=== PATIENT | male | born 1985 | race American Indian/Alaskan Native ===

== ENCOUNTER 2017-02-15 08:43 | Emergency (ER) | payer OTHER ==
[2017-02-15 08:43] VITALS: BMI 25.6
--- NOTE | 2017-02-15 09:21 | ED PDOC ---
Arrival/HPI - General Historian: Patient <Denny Brown - Last Filed: 02/15/17 10:33> - History of Present Illness Time/Duration: Other (2 days) Symptom Onset: Gradual Quality: Aching Severity Level: 6 <Penny Botello - Last Filed: 02/15/17 10:37> - General Chief Complaint: Dental Pain Time Seen by Provider: 02/15/17 08:44 - History of Present Illness Narrative History of Present Illness (Text): 31 year old male with a past medical history of recurrent dental abscesses that presents with two days of pain and swelling located inferior to the right canine with swelling to the right mental area. He denies any fever, chills, dysphagia, trismus, respiratory difficulty, new skin lesions, palpitations, or chest pain. The pain is worse with chewing, hot or cold liquid or solid intake. He has not seen a dentist since he was a child. 02/15/17 09:18 (Penny Botello) Past Medical History - Provider Review Nursing Documentation Reviewed: Yes - Infectious Disease Hx of Infectious Diseases: None - Tetanus Immunization Tetanus Immunization: Unknown - Psychiatric Hx Depression: No Hx Emotional Abuse: No Hx Physical Abuse: No Hx Substance Use: No - Anesthesia Hx Anesthesia: No Hx Anesthesia Reactions: No Hx Malignant Hyperthermia: No - Suicidal Assessment Feels Threatened In Home Enviroment: No <Penny Botello - Last Filed: 02/15/17 10:37> Family/Social History - Physician Review Nursing Documentation Reviewed: Yes Family/Social History: No Known Family HX Smoking Status: Never Smoked Hx Alcohol Use: No Hx Substance Use: No Hx Substance Use Treatment: No <Penny Botello - Last Filed: 02/15/17 10:37> Allergies/Home Meds <Denny Brown - Last Filed: 02/15/17 10:33> <Penny Botello - Last Filed: 02/15/17 10:37> Allergies/Adverse Reactions: Allergies No Known Allergies Allergy (Verified 01/13/15 04:13) Review of Systems - Review of Systems Constitutional: absent: Fevers, Night Sweats Eyes: absent: Photophobia, Eye Pain ENT: absent: Hearing Changes, Tinnitus, TMJ Pain Respiratory: absent: SOB, Cough, Wheezing Cardiovascular: absent: Chest Pain, Palpitations Musculoskeletal: absent: Neck Pain Skin: Abscess. absent: Rash, Skin Lesions Neurological: absent: Headache, Dizziness, Focal Weakness Endocrine: absent: Diaphoresis Hemo/Lymphatic: absent: Adenopathy, Easy Bleeding Psychiatric: absent: Anxiety, Depression <Penny Botello - Last Filed: 02/15/17 10:37> Physical Exam Vital Signs Reviewed: Yes <Denny Brown - Last Filed: 02/15/17 10:33> Temperature: Afebrile Blood Pressure: Normal Pulse: Regular Respiratory Rate: Normal Appearance: Positive for: Well-Appearing Pain Distress: Mild Mental Status: Positive for: Alert and Oriented X 3 - Systems Exam Head: Present: Atraumatic, Normocephalic Pupils: Present: PERRL Extroacular Muscles: Present: EOMI Conjunctiva: Present: Normal Mouth: Present: Moist Mucous Membranes, Other (swelling and injected mucosal inferior to right inferior canine with soft tissue swelling of the ipsilateral chin) Pharnyx: Present: Normal. No: ERYTHEMA, EXUDATE, Peritonsilar Swelling Neck: Present: Normal Range of Motion. No: Lymphadenopathy, Trachea Midline Respiratory/Chest: Present: Clear to Auscultation, Good Air Exchange. No: Respiratory Distress Cardiovascular: Present: Regular Rate and Rhythm, Normal S1, S2 Abdomen: Present: Normal Bowel Sounds. No: Tenderness, Distention <Penny Botello - Last Filed: 02/15/17 10:37> Vital Signs Temp Pulse Resp BP Pulse Ox 02/15/17 09:48 98.6 F 80 19 148/80 100 02/15/17 08:46 98.3 F 78 18 143/87 99 Medical Decision Making <Denny Brown - Last Filed: 02/15/17 10:33> <Penny Botello - Last Filed: 02/15/17 10:37> ED Course and Treatment: 02/15/17 10:34 In agreement with resident note, which includes further HPI details. Patient was seen and evaluated with resident, came up with plan and treatment together. 31 year old male, whose past medical history includes reoccurring dental abscesses, presents complaining of pain and swelling to the right canine for the past 3 days. (Denny Brown) Patient is agreeable to be discharged with Augmentin for periodontal abscess and should schedule appointment with dentist or oral-maxillofacial surgeon for further management of the aforementioned condition. 02/15/17 09:24 (Penny Botello) - Scribe Statement The provider has reviewed the documentation as recorded by the Scribe <Denny Brown - Last Filed: 02/15/17 10:33> <Penny Botello - Last Filed: 02/15/17 10:37> - Scribe Statement Edward Valdez All medical record entries made by the Scribe were at my direction and personally dictated by me. I have reviewed the chart and agree that the record accurately reflects my personal performance of the history, physical exam, medical decision making, and the department course for this patient. I have also personally directed, reviewed, and agree with the discharge instructions and disposition. (Denny Brown) Disposition/Present on Arrival <Denny Brown - Last Filed: 02/15/17 10:33> - Present on Arrival Any Indicators Present on Arrival: No History of DVT/PE: No History of Uncontrolled Diabetes: No Urinary Catheter: No History of Decub. Ulcer: No History Surgical Site Infection Following: None - Disposition Have Diagnosis and Disposition been Completed?: Yes Disposition Time: 09:35 Patient Plan: Discharge <Penny Botello - Last Filed: 02/15/17 10:37> - Disposition Diagnosis: Periodontal abscess Disposition: HOME/ ROUTINE Condition: STABLE Discharge Instructions (ExitCare): Dental Abscess (ED) Additional Instructions: Please take the prescribed medications as directed Please schedule an appointment with a dentist or oral-maxillofacial surgeon. Prescriptions: Amoxicillin/Clavulanate [Augmentin 875 MG-125 MG] 1 tab PO BID #14 tab Lactobacillus Acidophilus [Acidophilus Lactobacilli] 1 each PO DAILY #7 capsule Referrals: PCP,NO [Primary Care Provider] - Follow up with primary Forms: [employer] ([place]ian)
[2017-02-15 09:49] VITALS: BP 148/80; PULSE 80; RESP 19; TEMP 98.6; O2SAT 100
== END 2017-02-15 09:48 | disposition home or self-care (01) ==
LOC: ED 08:43
DX: K05.219 Aggressive periodontitis, localized, unspecified severity (principal)